=== PATIENT | female | born 1975 | race Caucasian/White ===

== ENCOUNTER 2020-02-26 16:10 | Emergency (ER) | payer OTHER ==
[~2020-02-26] VITALS: Ht 167.6 cm; Wt 108.9 kg
[2020-02-26 16:40] LABS: URINE BILIRUBIN NEGATIVE (Negative); URINE BLOOD 2+ (Negative); URINE CLARITY CLEAR; URINE COLOR YELLOW; URINE GLUCOSE-RANDOM* 3+ (Negative); URINE KETONES TRACE (Negative); URINE LEUKOCYTES-REFLEX NEGATIVE (Negative); URINE NITRITE-REFLEX NEGATIVE (Negative); URINE PROTEIN (DIPSTICK) NEGATIVE (Negative); URINE SPECIFIC GRAVITY >= 1.030 (1.005-1.035); URINE UROBILINOGEN 0.2 E.U./dl (0.2-1.0)
[2020-02-26 16:49] LABS: BACTERIA-REFLEX >30 Many /HPF (None Seen); CASTS None Seen /LPF (None Seen); CRYSTALS None Seen /LPF (None Seen); SQUAMOUS 4-10 Moderate /LPF (0-3); URINE RBC 3-10 Few /HPF (0-2); URINE WBC-REFLEX >25 Many /HPF (0-5)
[2020-02-26 17:30] LABS: BASOPHILS 0.6 % (0.0-2.0); EOSINOPHILS 0.5 % (0.0-3.0); HEMATOCRIT 45.8 % (37.0-47.0); HEMOGLOBIN 15.7 gm/dL (12.0-15.0); LYMPHOCYTES 22.7 % (24.0-44.0); MCHC 34.3 g/dL (28.0-37.0); MCV 90.3 fL (80.0-100.0); MONOCYTES 7.4 % (1.0-8.0); PLATELET COUNT 278 thou/uL (150-400); POLYS 68.8 % (36.0-66.0); RBC 5.07 mil/uL (4.20-5.00); RDW 13.1 % (10.5-14.5); WBC 8.7 thou/uL (4.0-11.0)
[2020-02-26 17:40] LABS: CALCIUM 9.5 mg/dL (8.5-10.1); CREATININE 1.3 mg/dL (0.6-1.0); POTASSIUM 3.6 mmol/L (3.5-5.1)
[2020-02-26 17:46] LABS: ALBUMIN 4.3 g/dL (3.4-5.0); TOTAL BILIRUBIN 0.4 mg/dL (0.2-1.0); TOTAL PROTEIN 7.8 g/dL (6.4-8.2)
[2020-02-26 17:59] LABS: MAGNESIUM 1.7 mg/dL (1.8-2.4)
[2020-02-26] MEDS ORDERED: KEFLEX500 M1 PO (19:27)
[2020-02-26 19:50] VITALS: BP 145/82
--- NOTE | 2020-02-29 07:40 | EKG ---
[facility] [place] [place] [address] ELECTROCARDIOGRAM REPORT Name: DEVONTE BANSAL Room #: DEP [facility]..#: [id number] Admission: 02/26/20 Attend Phys: Discharge: 02/26/20 Date of : 77 Report #: [id number] THIS REPORT FOR: cc: JANET - [facility] family physician/PCP JANET - [facility] family physician/PCP Addy Pack MD [facility] THIS REPORT FOR: //name// [facility] [place] [place] ED Test Date: 2020-02-26 Test Time: 16:32:29 Pat Name: DEVONTE BANSAL Department: Room: Gender: F Sheep Sorter: ALLY : 1975 Requested By: Delroy Feliciano Order Number: [id number] MD: Addy Pack Measurements Intervals [place] Rate: 84 P: 33 SD: 160 QRS: 66 QRSD: 88 T: 9 QT: 357 QTc: 422 Interpretive Statements Sinus rhythm No significant change was found No previous ECG available for comparison Electronically Signed On 02-29-2020 7:40:17 CDT by Adyd Pack [email or web address] <ELECTRONICALLY SIGNED> By: Addy Pack MD, [facility] 02/29/20 0740 [id number] 31 Addy Pack MD, [facility] /EPI
== END 2020-02-26 20:05 | disposition home or self-care (01) ==
LOC: ER 16:10
PROVIDERS: Emergency Medicine; Physician Assistant
DX: R53.83 Other fatigue (principal); Z20.828 Contact with and (suspected) exposure to other viral communicable diseases; E86.0 Dehydration; N39.0 Urinary tract infection, site not specified; E11.9 Type 2 diabetes mellitus without complications; I10 Essential (primary) hypertension